=== PATIENT | male | born 1960 | race Two or more races ===

== ENCOUNTER 2017-06-25 08:51 | Emergency (ER) | payer OTHER ==
[2017-06-25 09:00] VITALS: BP 119/76; PULSE 82; TEMP 98.5; BMI 20.9
--- NOTE | 2017-06-25 09:42 | PDOC ---
History of Present Illness - General Chief Complaint: Pain Stated Complaint: FACE PAIN Time Seen by Provider: 06/25/17 09:01 History Source: Patient Exam Limitations: No Limitations - History of Present Illness Initial Comments: 06/25/17 09:42 56-year-old male with significant medical history of gout who presents emergency Department with swelling noted to his face in front of his right ear. Patient states approximately one week ago he had some swelling in his submandibular region and now has migrated to and from his ear. He denies any fevers, chills, hearing loss, difficulty swallowing, discharge or drainage from the ear, headaches, dizziness, blurry vision, chest pain or shortness of breath. He denies trauma. Past History - Past Medical History Allergies/Adverse Reactions: Allergies Allergy/AdvReac Type Severity Reaction Status Date / Time No Known Allergies Allergy Verified 06/25/17 08:56 Home Medications: Ambulatory Orders Ciprofloxacin HCl/Dexameth [Ciprodex Otic Suspension] 3 drop AD BID #1 bottle COPD: No Other medical history: GOUT - Suicide/Smoking/Psychosocial Hx Smoking History: Current every day smoker Have you smoked in the past 12 months: Yes Number of Cigarettes Smoked Daily: 1 Information on smoking cessation initiated: No Review of Systems - Review of Systems Able to Perform ROS?: Yes Is the patient limited Azeri proficient: No Constitutional: No: Symptoms Reported HEENTM: Yes: See HPI Respiratory: No: Symptoms reported Cardiac (ROS): No: Symptoms Reported ABD/GI: No: Symptoms Reported : No: Symptoms Reported Musculoskeletal: No: Symptoms Reported Integumentary: No: Symptoms Reported Neurological: No: Symptoms reported Endocrine: No: Symptoms Reported Hematologic/Lymphatic: No: Symptoms Reported *Physical Exam - Vital Signs Last Vital Signs Temp Pulse Resp BP Pulse Ox 98.5 F 82 18 119/76 98 06/25/17 08:56 06/25/17 08:56 06/25/17 08:56 06/25/17 08:56 06/25/17 08:56 - Physical Exam General Appearance: Yes: Appropriately Dressed. No: Apparent Distress HEENT: positive: EOMI, LISA, Normal Voice, TMs Normal, Other (Right external auditory canal erythematous. No drainage). negative: Nasal Congestion, Sinus Tenderness Neck: positive: Trachea midline, Supple Respiratory/Chest: positive: Lungs Clear, Normal Breath Sounds. negative: Respiratory Distress, Accessory Muscle Use Cardiovascular: positive: Regular Rhythm, Regular Rate Gastrointestinal/Abdominal: positive: Normal Bowel Sounds, Soft. negative: Tender Musculoskeletal: positive: Normal Inspection. negative: CVA Tenderness Extremity: positive: Normal Inspection Integumentary: positive: Normal Color, Dry, Warm Neurologic: positive: Alert, Normal Response, Motor Strength 5/5 Medical Decision Making - Medical Decision Making 06/25/17 09:45 A/P: 56-year-old male without significant past medical history presents emergency Department with 1 week of lymphadenopathy to the right submandibular region and now preauricular TMs clear with appropriate light reflex bilaterally Right external auditory canal with erythema present. No discharge or drainage is noted. Left external auditory canals within normal limits. Oropharynx clear without erythema or exudates. Uvula midline Singular nontender palpable preauricular lymph node present No submandibular lymphadenopathy noted Preauricular lymphadenopathy at a from acute otitis externa or side effect of allopurinol patient takes occasionally for his gout. Given the started in the sub-mandibular region I will obtain a rapid strep test prior to treatment to rule out bacterial etiology 06/25/17 10:26 Rapid strep testing is negative. I will discharge the patient home with Ciprodex 3 drops twice a day *DC/Admit/Observation/Transfer Diagnosis at time of Disposition: Otitis externa Qualifiers: Otitis externa type: other infective Chronicity: acute Laterality: right Qualified Code(s): H60.391 - Other infective otitis externa, right ear - Discharge Dispostion Disposition: HOME Condition at time of disposition: Stable Admit: No - Prescriptions Prescriptions: Ciprofloxacin HCl/Dexameth [Ciprodex Otic Suspension] 3 drop AD BID #1 bottle - Referrals - Patient Instructions Printed Discharge Instructions: DI for Otitis Externa Additional Instructions: Take Ciprodex 3 drops in your right ear twice a day for the next 7 days Return to emergency department for any discharge, drainage, severe pain, bleeding, dizziness or any other concerns - Post Discharge Activity
== END 2017-06-25 10:42 | disposition home or self-care (01) ==
LOC: JERFT 08:51
DX: H60.391 Other infective otitis externa, right ear (principal); R59.0 Localized enlarged lymph nodes; M10.9 Gout, unspecified; F17.210 Nicotine dependence, cigarettes, uncomplicated
CPT/HCPCS: 87070; 87430; 99281-25

== ENCOUNTER 2020-12-08 14:10 | Emergency (ER) | payer OTHER ==
[2020-12-08 14:30] VITALS: BP 118/80; PULSE 73; TEMP 97.9; BMI 20.9
[2020-12-08] MEDS ORDERED: DIPHTH,PERTUSS(ACELL),TET 0.5 ML DISP.SYRIN IM ONE ×2 (15:23→15:33)
== END 2020-12-08 15:38 | disposition home or self-care (01) ==
LOC: JERFT 14:10
PROC: 3E0234Z Introduction of Serum, Toxoid and Vaccine into Muscle, Percutaneous Approach (ICD-10-PCS; principal; 2020-12-08)
DX: L03.213 Periorbital cellulitis (principal); H00.015 Hordeolum externum left lower eyelid
CPT/HCPCS: 90471; 90715; 99284-25

== ENCOUNTER 2021-08-03 13:43 | Emergency (ER) | payer OTHER ==
[2021-08-03 14:10] VITALS: BP 128/78; PULSE 78; TEMP 98.6; BMI 20.9
[2021-08-03] MEDS ORDERED: KETOROLAC TROMETHAMINE 30 MG/1 ML VIAL IM ONE (18:03)
[2021-08-03] MEDS ORDERED: IBUPROFEN 600 MG TABLET (FP) PO ONE (18:09)
== END 2021-08-03 18:08 | disposition home or self-care (01) ==
LOC: JERFT 13:43 → JER 13:43 → JERFT 18:08
DX: M79.604 Pain in right leg (principal)
CPT/HCPCS: 93971-TC; 99283-25

== ENCOUNTER 2022-08-08 17:37 | Emergency (ER) | payer OTHER ==
[2022-08-08 17:52] VITALS: BP 116/71; PULSE 60; RESP 16; TEMP 98.1; BMI 20.9
[2022-08-08] MEDS ORDERED: KETOROLAC TROMETHAMINE 30 MG/1 ML VIAL IM ONE (18:23)
[2022-08-08] MEDS ORDERED: KETOROLAC TROMETHAMINE 30 MG/1 ML VIAL ONE (18:28)
== END 2022-08-08 21:55 | disposition home or self-care (01) ==
LOC: JER 17:37
PROC: 3E0233Z Introduction of Anti-inflammatory into Muscle, Percutaneous Approach (ICD-10-PCS; principal; 2022-08-08)
DX: M54.40 Lumbago with sciatica, unspecified side (principal)
CPT/HCPCS: 72100-TC-FY; 99284-25